=== PATIENT | male | born 1935 | race Caucasian/White ===

== ENCOUNTER 2017-01-08 12:12 | Observation (INO) | payer MEDICARE, MEDICAID ==
[~2017-01-08] VITALS: Ht 180.3 cm; Wt 91.7 kg
[2017-01-10] MEDS ORDERED: CLARITIN DPS10 MG PO (08:36)
[2017-01-10] MEDS ORDERED: COLACE-DPS100 MG PO (08:36)
[2017-01-10] MEDS ORDERED: LIPITOR40 MG PO (08:36)
[2017-01-10] MEDS ORDERED: BENADRYL-DPS25 MG PO (08:36)
[2017-01-10] MEDS ORDERED: ASA CHILDREN'S81 MG PO (08:36)
[2017-01-10] MEDS ORDERED: HYDROCHLOROTHIA25 MG PO (08:36)
[2017-01-10] MEDS ORDERED: ULTRAM DPS50 MG PO (08:36)
[2017-01-10] MEDS ORDERED: PRILOSEC DPS20 MG PO (08:37)
[2017-01-10] MEDS ORDERED: NITROSTAT0.4 MG SL (08:37)
--- NOTE | 2017-01-10 15:27 | HP ---
ADMIT: 01/08/2017 RM/LOC: 419 [facility] MR#: [id number] [address] [facility] [address] [place], [place] [address] MACRINA WRIGHT [address] [place] [address] History and Physical SEX: M AGE: 81 : 1935 DATE OF SERVICE: CHIEF COMPLAINT: Chest pain. HISTORY OF PRESENT ILLNESS: Macrina is an 81-year-old, white male, followed by Dr. Rose in the [facility]. He was admitted to [facility] through the emergency room with complaint of chest pain. By history, he has had recurrent episodes over the last week or so of severe heartburn with a history of known reflux and a hiatal hernia, status post Jordan fundoplication. He states he would develop a burning in his belly and chest and a sharp pain shooting down his left arm. He subsequently presented to the ER where cardiac enzymes and EKGs were obtained and they were normal. He was admitted for rule out DC. He has a history of known nonobstructive coronary artery disease with followup with Cardiology in December 2015. At that time, he underwent an echo and a stress test and carotid Doppler's and was felt to be nonobstructive and was managed medically. At this time, he denies any new concerns. He was seen by [facility] earlier today and started him on beta-prachi and Lipitor 40 mg therapy. PAST MEDICAL HISTORY: Includes a bad neck and back with known osteoarthritis and spinal stenosis. He has had multiple surgeries including cholecystectomy, appendectomy, tonsillectomy, prostatectomy with history of prostate cancer, cervical and lumbar stenosis with neuralgia, chronic depression, hypertension, hyperlipidemia, and nonobstructive coronary disease noted on prior catheterization, I believe in 2003. As noted had some nonobstructive carotid vascular disease a year ago, carotid Doppler's, and passed a stress test and echo. MEDICATIONS: His medications on admission are available for MD to review and include: 1. Hydrochlorothiazide 12.5 mg b.i.d. 2. Tramadol 50 mg q.6 hours p.r.n. 3. Loratadine 10 mg daily. 4. Benadryl 25 mg p.r.n. 5. Aspirin 81 mg daily. ALLERGIES: INCLUDE IODINE, ADENOSINE, HEPARIN, BEEF. SOCIAL HISTORY: He is an 81-year-old, non smoker. He rarely drinks. 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 FAMILY HISTORY: Noncontributory. REVIEW OF SYSTEMS: Remarkable for diffuse arthralgias involving his shoulders, arms, lower extremities, back, and neck. Additionally, he has had prior prostate surgeries with no major urinary problems. Other review of systems is negative. ADMIT: 01/08/2017 RM/LOC: 419 [facility] MR#: [id number] [address] [place] [id number] MACRINA WRIGHT [address] [facility] [address] [place] [address] History and Physical SEX: M AGE: 81 : 1935 PHYSICAL EXAMINATION: VITAL SIGNS: Include temperature 97.3, pulse 39, respiratory rate 18, blood pressure 116/57. GENERAL APPEARANCE: Is that of an 81-year-old male who is alert and oriented, in no acute distress. HEART: Regular with a rate of around 70. Concerns for bigeminy were noted on the monitor. LUNGS: Clear. HEENT: Pupils are reactive. TMs unremarkable. Mucous membranes moist. NECK: Without nodes or masses. ABDOMEN: Soft, nontender, benign. GENITOURINARY: Deferred. RECTAL: Deferred. EXTREMITIES: Reveal no clubbing, cyanosis, or edema. He has some arthritic changes in his left lower extremity. NEUROLOGIC: Exam reveals grossly normal to light touch, strength, DTRs. LABORATORY AND X-RAY DATA: EKG shows bigeminy. Chest x-ray is normal. Labs include sodium 139, potassium 3.9, BUN of 22, creatinine 1.3, glucose 98. Initial cardiac enzymes show CPK 64, MB of 1.1, troponin I less than 0.15, INR is less than 1. White count 4.4, hemoglobin 13.6, platelet count 136,000. ASSESSMENT: 1. Chest pain rule out DC with known nonobstructive coronary artery disease. 2. History of hiatal hernia with reflux status post prior surgery, probably a laparoscopic Rickey. Other problems include: 1. Cervical and lumbar osteoarthritis and spinal stenosis. 2. Hyperlipidemia. 3. Hypertension. 4. Prostate cancer, status post surgical resection. 5. Dysthymia. PLAN: [facility] was consulted. Serial cardiac enzymes and EKGs were ordered. Try to medically manage him, place him on H2 prachi and proceed with further evaluation and management based on course during hospitalization. Please see his hospital record for the details. Adolfo Brady MD/ kelly JOB #: [id number] CC: Trino Rose, Attending Physician Trino Rose, Family Physician
--- NOTE | 2017-01-15 11:01 | ER ---
ADMIT: 01/08/2017 RM/LOC: 419 [facility] MR#: [id number] [address] [facility] [place], [place] [address] [address] [facility] [address] [place] [address] Emergency Room Report SEX: M AGE: 81 : 1935 DATE: 01/08/2017 ADDENDUM: This 81-year-old white male coming with chest pain. EKG looks like he skips frequent beats, almost a bigeminy. CBC, chemistry, and troponin all negative. Pain relieved with nitroglycerin. I put an inch of paste on him. I spoke with Dr. Brady, he will admit as a rule out. CONDITION ON DISCHARGE: Fair. Shravan Byrnes MD/ kelly JOB #: [id number] CC: Trino Rose MD, Attending Physician Trino Rose MD, Family Physician
--- NOTE | 2017-02-05 17:44 | CO ---
ADMIT: 01/08/2017 RM/LOC: 419 [facility] MR#: [id number] [address] [facility] [address] [place], [place] [address] MACRINA WRIGHT [address] [place] [address] Consultation SEX: M AGE: 81 : 1935 DATE OF CONSULTATION: 01/08/2017 ATTENDING PHYSICIAN: Trino Rose CONSULTING PHYSICIAN: Angelica Gomez MD REASON FOR CONSULTATION: Atypical chest pain. HISTORY OF PRESENT ILLNESS: This is an 81-year-old male with a past medical history significant for hypertension and chronic kidney disease, who was admitted for atypical chest pain. The patient states that he has had on and off chest pain for the last several days. He describes the pain as midsternal chest pressure with associated burping. He has no nausea, vomiting, shortness of breath, or diaphoresis. He also complains of some chronic left shoulder pain with left hand numbness, but this is not associated with the chest pain. His chest pain can occur with rest or activity, and is not worsened by exertion. He does have a history of hiatal hernia, status post Jordan, and chronic GERD. He was on Prilosec for two years and felt better on this, but stopped this medication after he saw a commercial stating that it was "bad for you". He was last seen at [facility] by Dr. Islas on 12/31/2015. At that time, he was on metoprolol succinate but is no longer taking this. He thinks this PCP stopped the medication due to low heart rate. He is currently denying any dizziness or lightheadedness. He was given some nitroglycerin paste in the ER, but does not think that it has made any difference in his chest pressure other than causing him to have a headache. He has not had any recent lower extremity swelling or worsening of shortness of breath. His initial EKG in the ER showed intermittent ventricular bigeminy, but no ST elevation or T-wave changes. His initial troponin is negative. His vital signs have been stable since arrival. PAST MEDICAL HISTORY: 1. History of testicular cancer, status post orchiectomy. 2. History of subdural hematoma. 3. History of prostate cancer, status post prostatectomy. 4. Gout. 5. Migraine headache. 6. Depression. 7. GERD. 8. OA with cervical spinal stenosis. 9. CKD. 10.Hypertension. CARDIAC HISTORY: 1. He did have a heart catheterization back in 2003 that showed nonobstructive coronary artery disease. 2. He had carotid Dopplers done in November of 2015 that showed 39% stenosis on the right and 40% to 59% stenosis on the left. 3. He had a Lexiscan done in November of 2015 that was negative for any ischemia and showed an ejection fraction of 58%. Of note, at his last ADMIT: 01/08/2017 RM/LOC: 419 [facility] MR#: [id number] [address] [address] MACRINA WRIGHT [address] [place] [address] Consultation SEX: M AGE: 81 : 1935 [address] Islas at [facility], he was told that he would need a repeat carotid Doppler done a year from the last one and he has not scheduled an appointment to have that done as of yet. PAST SURGICAL HISTORY: 1. Incisional hernia repair. 2. Orchiectomy. 3. Craniotomy, status post subdural hematoma. 4. Prostatectomy. 5. Appendectomy. 6. Cholecystectomy. CURRENT MEDICATIONS: List shows: 1. Hydrochlorothiazide 12.5 mg half a tab b.i.d. 2. Tramadol 50 mg, one tab every 6 hours as needed. 3. Loratadine 10 mg daily. 4. Benadryl 25 mg, one tab daily as needed. 5. Aspirin 81 mg at bedtime. ALLERGIES: 1. CELEBREX. 2. IODINE. 3. KEFLEX. 4. MOTRIN. 5. HEPARIN. 6. ADENOSINE. SOCIAL HISTORY: He denies any use of tobacco, alcohol, or illegal drugs. He currently lives in home with his . FAMILY HISTORY: Significant for dad with an IA at age 70. His mom also had IA at the age of 69 and 85. She after IA at the age of 85. She also had a history of TIAs. REVIEW OF SYSTEMS: A 10-point review of systems was reviewed and negative other than that stated above in the HPI. PHYSICAL EXAMINATION: VITAL SIGNS: Blood pressure 116/57, pulse 80, respirations 18, temp 97.3, saturating 96% on room air. GENERAL: He is alert and oriented x3. No acute distress. HEENT: Shows moist mucous membranes. Nose clear. Atraumatic. No jugular venous distention. HEART: Irregular rhythm. No murmur. LUNGS: Clear. ABDOMEN: Soft, nontender, nondistended with positive bowel sounds. EXTREMITIES: No edema. He does have bilateral lower extremity varicosities. SKIN: Warm and dry. LABORATORY AND X-RAY DATA: Sodium 139, potassium 3.9, creatinine 1.3. GFR is ADMIT: 01/08/2017 RM/LOC: 419 [facility] MR#: [id number] [address] [address] MACRINA WRIGHT [address] [facility] [address] [place] [address] Consultation SEX: M AGE: 81 : 1935 51. White count 4.4, hemoglobin 13.6, platelets 136. LDH 148. CK was 64, MB 1.1. Troponin was negative. EKG shows intermittent ventricular bigeminy. Chest x-ray is clear. ASSESSMENT AND PLAN: 1. Atypical chest pain. This sounds more like acid reflux. We will go ahead and trend his troponins and repeat an EKG in the morning. He did have a heart catheterization back in 2003 that showed nonobstructive coronary artery disease, as well as a Lexiscan done in November of 2015, that was negative for ischemia and showed an ejection fraction of 58%. 2. Nonobstructive coronary artery disease. We will go ahead and add Lipitor johnnie since he has carotid a stenosis, and restart metoprolol at a lower dose to maximize his medical management. 3. Intermittent ventricular bigeminy. On tele, his heart rate is in 80's, on Vs check on automated BP/HR machine, pulse is reported in 40's, since this is just not capturing that second beat, so I think we are okay to restart metoprolol. 4. Gastroesophageal reflux disease. We will go ahead and restart a PPI. He might need a repeat EGD in the future. 5. History of carotid disease. He will need a repeat bilateral carotid Doppler as an outpatient. Kristen Blum, DO Resident / Angelica Gomez MD / kelly JOB #: [id number] CC: Trino Rose, Attending Physician Trino Rose, Family Physician
[2017-03-24] MEDS ORDERED: RANEXA500 MG PO (10:13)
[2017-03-24] MEDS ORDERED: ZEBETA5 MG PO (10:14)
[2017-03-24] MEDS ORDERED: NEXIUM40 MG PO (10:15)
[2017-03-24] MEDS ORDERED: PLAVIX75 MG PO (10:15)
== END 2017-01-09 10:00 | disposition home or self-care (01) ==
LOC: ER 12:12 → 4PCU 13:50
PROVIDERS: ADMIT Family Medicine
DX: R07.89 Other chest pain (principal); R00.1 Bradycardia, unspecified; I12.9 Hypertensive chronic kidney disease with stage 1 through stage 4 chronic kidney disease, or unspecified chronic kidney disease; K21.9 Gastro-esophageal reflux disease without esophagitis; N18.9 Chronic kidney disease, unspecified; M48.00 Spinal stenosis, site unspecified; M47.816 Spondylosis without myelopathy or radiculopathy, lumbar region; M47.812 Spondylosis without myelopathy or radiculopathy, cervical region; E78.5 Hyperlipidemia, unspecified; I10 Essential (primary) hypertension; F34.1 Dysthymic disorder; F32.9 Major depressive disorder, single episode, unspecified; Z85.46 Personal history of malignant neoplasm of prostate; M10.9 Gout, unspecified; G43.909 Migraine, unspecified, not intractable, without status migrainosus; Z88.8 Allergy status to other drugs, medicaments and biological substances